=== PATIENT | male | born 1965 | race Two or more races ===

== ENCOUNTER 2017-12-01 10:12 | Emergency (ER) | payer OTHER ==
[~2017-12-01] VITALS: Ht 170.2 cm; Wt 78.2 kg
[2017-12-01 10:14] VITALS: BP 127/86
[2017-12-01] MEDS ORDERED: ACETAMINOPHEN 325 MG TABLET ONE (10:48)
[2017-12-01] MEDS ORDERED: ACETAMINOPHEN 325 MG TABLET PO ONE (11:00)
[2017-12-01 11:02] LABS: BASOPHILS # (AUTO) 0.04 x10^3/uL (0-0.1); BASOPHILS % (AUTO) 1 % (0-1); EOSINOPHILS # (AUTO) 0.09 x10^3/uL (0-0.4); EOSINOPHILS % (AUTO) 1 % (1-7); LYMPHOCYTES # (AUTO) 2.65 x10^3/uL (1-3.4); LYMPHOCYTES % (AUTO) 39 % (22-44); MD NO; MEAN CORPUSCULAR HGB CONC 34.6 g/dL (33.2-36.2); MEAN CORPUSCULAR VOLUME 89.6 fL (81-97); MEAN PLATELET VOLUME 7.8 fL (7.4-10.4); MONOCYTES # (AUTO) 0.45 x10^3/uL (0.2-0.8); MONOCYTES % (AUTO) 7 % (2-9); NEUTROPHILS # (AUTO) 3.64 x10^3/uL (1.8-6.8); NEUTROPHILS % (AUTO) 53 % (42-75); PLATELET COUNT 234 x10^3/uL (130-400); RED BLOOD COUNT 5.59 x10^6/uL (4.38-5.82); RED CELL DISTRIBUTION WIDTH 14.2 % (9.4-14.8)
[2017-12-01 11:12] LABS: ANION GAP 7 mmol/L (5-15); CALCIUM 8.5 mg/dL (8.5-10.1); CHLORIDE 106 mmol/L (98-107); CREATININE 0.94 mg/dL (0.7-1.3)
[2017-12-01 11:13] LABS: ALBUMIN 3.7 g/dL (3.4-5.0)
[2017-12-01 11:26] LABS: MICROSCOPIC NOT IND
[2017-12-01 11:28] LABS: CULTURE INDICATED? NO
== END 2017-12-01 12:53 | disposition home or self-care (01) ==
LOC: ED 11:03
DX: M25.50 Pain in unspecified joint (principal); R50.9 Fever, unspecified; F17.210 Nicotine dependence, cigarettes, uncomplicated; R33.9 Retention of urine, unspecified
CPT/HCPCS: 36415; 76870; 80048; 81003; 82040; 85025; 99285

== ENCOUNTER 2018-04-22 12:51 | Emergency (ER) | payer OTHER ==
[~2018-04-22] VITALS: Ht 170.2 cm; Wt 76.4 kg
[2018-04-22 12:53] VITALS: BP 121/85
== END 2018-04-22 13:23 | disposition home or self-care (01) ==
LOC: ED 13:15
DX: J01.80 Other acute sinusitis (principal)
CPT/HCPCS: 99283